=== PATIENT | male | born 1955 | race Caucasian/White ===

== ENCOUNTER → 2017-03-07 | Day surgery (SDC) | payer OTHER ==
[~2017-03-07] VITALS: Ht 193 cm; Wt 107.3 kg
[~2017-03-07] MED LIST: ACETAMINOPHEN 1000 MG/100 ML 100 ML IV ONE; CELE1CAP6 PO; CHLORHEXIDINE GLUCONATE 2 % 1 PACK (2 CLOTHS) TOPICAL PRN; DEXAMETHASONE SOD PHOS 4 MG/ML VIAL IV ONE; DEXAMETHASONE SOD PHOS 4 MG/ML VIAL IV PUSH ONE; DO NOT ADM ANY ANTICOAGULANT DRUGS PRN; DULO1CAP2 PO; FLUT50SP EACH NARE; GLYCOPYRROLATE 1 MG/5 ML SYRINGE IV PUSH ONE; L-AR1000 PO; LACTATED RINGER'S 1000 ML IV PRN; LEVO500T8 PO; LIDOCAINE HCL 1% PF 5 ML SYRINGE OTHER ONE; LYRI150C PO; MAGN500T5 PO; METOPROLOL TARTRATE 25 MG TAB PO PRN; MIDAZOLAM HCL 2 MG/2 ML VIAL IV PUSH ONE; MIRA50TA PO; ONABOTULINUMTOXINA INJ 100 UNITS/VIAL SCH; ONDANSETRON HCL 4 MG/2 ML VIAL IV PUSH ONE; ONDANSETRON HCL 4 MG/2 ML VIAL IV PUSH PRN; PERC5TAB12 PO; PHENYLEPH/NS 1000 MCG/10 ML SYR IV ONE; POVIDONE IODINE 5% (ANTISEPSIS KIT) 4 APPLICATIONS EACH NARE PRN; PROPOFOL 200 MG/20 ML AMP IV ONE; SODIUM CHLORID 0.9% 500 ML IV PRN; SODIUM CHLORIDE 0.9% 20 ML VIAL ONE; TEST200I13 IM; ZINC50TA2 PO; [UNRECOGNIZED DRUG - CODE] SQ; ePHEDrine/NS 25 MG/5 ML SYRINGE IV ONE; oxyCODONE/ACETAMINOPHEN 5 MG/325 MG TAB PO PRN
[2017-03-07 11:07] LABS: AUTOMATED NEUTROPHIL # 2.5 TH/MM3 (1.8-7.7); BASOPHIL % 0.5 % (0.0-2.0); EOSINOPHIL # 0.2 TH/MM3 (0-0.4); EOSINOPHIL % 5.9 % (0.0-4.0); HEMATOCRIT 34.9 % (39.0-51.0); HEMOGLOBIN 12.4 GM/DL (13.0-17.0); LYMPHOCYTE # 0.9 TH/MM3 (1.0-4.8); MEAN CELL VOLUME 97.9 FL (80.0-100.0); MEAN CORPUSCULAR HEMOGLOBIN 34.7 PG (27.0-34.0); MEAN CORPUSCULAR HGB CONC 35.5 % (32.0-36.0); MEAN PLATELET VOLUME 6.7 FL (7.0-11.0); MONO % 7.3 % (0.0-8.0); MONOCYTE # 0.3 TH/MM3 (0-0.9); NEUT % 63.3 % (16.0-70.0); PLATELET COUNT 157 TH/MM3 (150-450); RED BLOOD COUNT 3.56 MIL/MM3 (4.50-5.90); RED CELL DISTRIBUTION WIDTH 14.1 % (11.6-17.2)
[2017-03-07] MEDS: LEVOFLOXACIN 500 MG PREMIX INJ 100 ML IV SCH ×2 (11:50→11:57)
--- NOTE | 2017-03-07 13:08 | PD.OP ---
Operative Report Date of Surgery: Mar 07, 2017 Preoperative Diagnosis: (1) Neurogenic bladder Postoperative Diagnosis: (1) Neurogenic bladder Procedure: Cystoscopy and intravesical Botox injection therapy Anesthesia: General Surgeon: Fortunato Crum Mold Operator(s): None Operation and Findings: Indication for procedures: Case of a pleasant 61-year-old gentleman with history spinal cord injury and neurogenic bladder dysfunction who presents today for cystoscopy and intravesical Botox injection therapy to increase his bladder capacity. Operative procedure in detail: Patient was brought to the operating room suite and placed supine on the cystoscopy table. He was then placed under general anesthesia. He was then repositioned in the dorsolithotomy position and prepped and draped in normal sterile fashion. After an appropriate timeout was undertaken to proceed with cystoscopic evaluation utilizing the rigid cystoscope with a 20 [place] sheath and 30 lens. Both right and left ureteral orifices were in correct anatomic position draining clear yellow urine. There were no bladder mucosal lesions, calculi or diverticula formation. There was some trabeculation of the urinary bladder detrusor noted. I then proceeded with intravesical injection of the Botox. A solution of 100 units Botox and 10 cc fluid was administered and half cc increments approximately one centimeter apart. The posterior, lateral arambula and anterior wall were injected. A total of 200 units was administered. At conclusion of the procedure there was minimal oozing of blood from the injection sites and a 16 [place] 10 cc Vaughn catheter was placed. The patient tolerated the procedures without complications and was transferred to the PACU in satisfactory condition. oFrtunato Crum MD Mar 07, 2017 13:07
[2017-03-07 15:15] VITALS: BP 155/81; PULSE 74; RESP 18; TEMP 99; O2SAT 98
--- NOTE | 2017-03-07 18:14 | EKG ---
Date Performed: 03/07/2017 Time Performed: 10:13:33 PTAGE: 61 years EKG: Sinus rhythm WITH FIRST DEGREE AV BLOCK ABNORMAL ECG NO PREVIOUS TRACING DOCTOR: Carleen Cedeno Interpretating Date/Time 03/07/2017 18:12:45
== END | disposition home or self-care (01) ==
LOC: HSDC 09:34
PROVIDERS: ATTEND Urology
DX: N31.9 Neuromuscular dysfunction of bladder, unspecified (principal); R94.31 Abnormal electrocardiogram [ECG] [EKG]
CPT/HCPCS: 00910; 52287; 85025; 93005; J0131; J0585; J1100; J1956; J2370; J2405; J3010; J7120